=== PATIENT | female | born 1995 | race African-American/Black ===

== ENCOUNTER → 2020-08-29 13:47 | Outpatient (CLI) | payer MEDICAID, SELFPAY ==
[2014-05-18 17:49] VITALS: BMI 30.8
[2020-08-30 08:27] LABS: HIV - WCH Non-Reactive (Nonreactive); Hepatitis B Surface Antibody Non-Reactive; Hepatitis C Antibody Non-Reactive (Nonreactive); Syphilis Antibodies Non-reactive
[2020-09-01 20:34] LABS: HPV Reflexed? NOT INDICATED
== END ==
PROVIDERS: Visit Provider Obstetrics & Gynecology
DX: Z11.3 Encounter for screening for infections with a predominantly sexual mode of transmission (principal); Z12.4 Encounter for screening for malignant neoplasm of cervix
CPT/HCPCS: 36415; 86703; 86706; 86780; 86803; 88175; G0145